=== PATIENT | female | born 1985 | race Two or more races ===

== ENCOUNTER 2024-07-08 14:26 | Emergency (ER) | payer MEDICAID, SELFPAY ==
[2024-07-08 15:01] VITALS: BP 148/93; PULSE 88; RESP 16; TEMP 37.2; O2SAT 98; BMI 23.6
--- NOTE | 2024-07-08 15:28 | PD.EDRME ---
Rapid Medical Screening Exam RME Arrival date/time: 07/08/24 14:26 This is a 39-year-old female that comes in with complaints of abdominal pain. Patient also complains of some nausea and some diarrhea. Patient denies fever or chills. I have greeted and performed a focused initial assessment of this patient. Initial appropriate labs ordered at this time. A comprehensive ED assessment and evaluation of the patient and analysis of all test and completion of medical decision making process will be conducted by additional ED provider. Chief Complaint: Abdominal Pain Time Seen by Provider: 07/08/24 14:32 Vital signs: Vital Signs Temperature 98.9 F 07/08/24 15:01 Pulse Rate 88 07/08/24 15:01 Respiratory Rate 16 07/08/24 15:01 Blood Pressure 148/93 H 07/08/24 15:01 Pulse Oximetry (%) 98 07/08/24 15:01 Oxygen Delivery Method Room Air 07/08/24 15:01
[2024-07-08 15:33] LABS: Collection Type, Urine Voided
[2024-07-08 16:02] LABS: Basophils % (Auto) 0 % (0-2.5); Eosinophils # (Auto) 0.1 Thou/mm3 (0.0-0.5); Eosinophils % (Auto) 1 % (0-10); Hematocrit 38.8 % (36.0-46.0); Hemoglobin 13.7 g/dL (12.0-16.0); Immature Granulocytes % (Auto) 0 % (0-0); Immature Granulocytes Auto 0.02 Thou/mm3 (0.00-0.00); Lymphocytes # (Auto) 1.3 Thou/mm3 (1.0-4.8); Lymphocytes % (Auto) 16 % (10-50); Mean Corpuscular HGB Conc 35.3 g/dl (31.0-37.0); Mean Corpuscular Hemoglobin 30.9 pg (25.0-35.0); Mean Corpuscular Volume 87 fL (80-100); Monocytes # (Auto) 0.5 Thou/mm3 (0.0-0.8); Monocytes % (Auto) 6 % (0-12); Neutrophils # (Auto) 6.3 Thou/mm3 (1.8-7.7); Neutrophils % (Auto) 77 % (37-80); Nucleated Red Blood Cell % 0 /100 WBC (0); Platelet Count 233 Thou/mm3 (140-440); RDW Standard Deviation 39.6 fL (36.4-46.3); Red Blood Count 4.44 Miln/mm3 (4.00-5.20); White Blood Count 8.2 Thou/mm3 (3.6-11.0)
[2024-07-08 16:26] LABS: Bilirubin,Urine Negative (Negative); Blood,Urine 1+ (Negative); Clarity,Urine Turbid (Clear/Hazy); Color,Urine Yellow (Lt Yel-Yel); Culture Indicated,Urine Not Indicated; Glucose, Urine Negative (Negative); Ketones,Urine Trace (Negative); Leukocyte Esterase,Urine Negative (Negative); Nitrite,Urine Negative (Negative); PH,Urine 5.5 (5.0-7.0); Protein,Urine Trace (Neg - Trace); RBC,Urine 3 /hpf (0-3); Specific Gravity,Urine 1.024 (1.001-1.035); Squamous Epithelial Cell,Urine 10 /hpf (0-5); Urobilinogen,Urine Negative mg/dL (0.0-1.0); WBC,Urine 2 /hpf (0-5)
[2024-07-08 16:26] LABS: Alanine Aminotransferase 18 U/L (10-49); Albumin, Serum 4.4 gm/dL (3.5-5.0); Albumin/Globulin Ratio 1.4 (1.2-2.2); Alkaline Phosphatase 90 U/L (46-116); Anion Gap 12 (7-16); Aspartate Amino Transferase 23 U/L (0-34); BUN/Creatinine Ratio 8 Ratio (12-20); Bilirubin,Total 0.3 mg/dL (0.3-1.2); Blood Urea Nitrogen 6 mg/dL (9-23); Calcium 8.7 mg/dL (8.3-10.6); Calcium (Corrected) 8.7 mg/dL (8.5-10.1); Carbon Dioxide 23.9 mMol/L (20.0-31.0); Chloride 107 mMol/L (98-107); Creatinine (Component) 0.8 mg/dL (0.6-1.3); Estimated Creatinine Clearance 83.3 mL/min (>60); Globulin 3.1 gm/dL (2.3-3.5); Glucose 131 mg/dL (74-106); Lipase 36 U/L (12-53); Osmolality,Calculated 284 (275-295); Potassium 3.6 mMol/L (3.4-5.1); Sodium 143 mMol/L (136-145); Total Protein 7.5 gm/dL (5.7-8.2); eGFR > 60 See Note
[2024-07-08 16:31] LABS: HCG Qualitative,Urine Negative
[2024-07-08 18:42] VITALS: BP 150/94; PULSE 96; RESP 18; TEMP 37.2; O2SAT 99
--- NOTE | 2024-07-08 18:58 | XR_ITS ---
Examination: Abdomen sonogram, complete Date and time of exam: July 08, 2024 1939 hours INDICATIONS: Onset of abdominal pain today Technique: Multiple real-time grayscale transabdominal sonographic images of the abdomen have been obtained. Findings: Normal gallbladder Common bile duct 0.6 cm no definite stones Pancreatic head 2.7 cm Aorta nonenlarged Liver 14.5 cm fatty infiltration Normal hepatopedal portal venous flow Patent IVC Right kidney 9.6 cm renal cortex 1.4 cm Left kidney 10.0 cm renal cortical in 0.5 cm Spleen 9.6 cm IMPRESSION: Abnormal enlargement common bile duct, as clinically warranted, consider MRCP follow-up to exclude common bile duct stone or stricture
--- NOTE | 2024-07-08 19:20 | EDNOTE_ITS ---
Nausea/Vomit./Diarrhea-RME/HPI General Chief complaint: Abdominal Pain Stated complaint: ABD PAIN, DIARRHEA, VOMIT X YESTERDAY Time Seen by Provider: 07/08/24 14:32 Arrival date/time: 07/08/24 14:26 RME / HPI RME / HPI Narrative: 07/08/24 14:26 This is a 39-year-old female that comes in with complaints of abdominal pain for 2 days. Patient also complains of some nausea and 2 episodes of watery diarrhea. She reports no headache, lightheadedness, sore throat, chest pain, SOB, any changes in urinary habit, leg swelling, fever or chills. Related Data Home Medications ?Medication ?Instructions ?Recorded ?Confirmed prenat.vits,grace,[id number] 1 tab PO QDAY 05/08/20 05/08/20 Previous Rx's ?Medication ?Instructions ?Recorded acetaminophen 325 mg tablet 325 mg PO QID PRN pain #30 tabs 07/08/24 pantoprazole 40 mg tablet,delayed 40 mg PO QDAY #28 ta bs 07/08/24 release Allergies Allergy/AdvReac Type Severity Reaction Status Date / Time NKA* Allergy Uncoded 07/08/24 14:29 Review of Systems Review of Systems Systems Reviewed: All systems reviewed, normal except as documented Past Medical History Past Medical History NEUROLOGIC: Negative Neurological Disorders or Seizures CARDIAC: Negative Cardiac Disorders or Congestive Heart Failure RESPIRATORY: Negative Chronic Obstructive Pulmonary Disease (COPD) GASTROINTESTINAL: Negative Gastrointestinal Disorders GENITOURINARY: Negative Genitourinary Disorders or Renal Disease REPRODUCTIVE: Positive Previous Pregnancies MUSCULOSKELETAL: Negative Musculoskeletal Disorders ENDOCRINE: Negative Endocrine Disorders, Diabetes Mellitus Type 1 or Diabetes Mellitus Type 2 HEMATOLOGIC: Negative Blood Disorders or Anemia OTHER HISTORY: Positive Hospitalization (CHILDBIRTH); Negative Autoimmune Disease, Falls, Blood Transfusions, Blood Transfusion Reaction, Anesthesia Reactions or Cancer Family History FAMILY HISTORY: Negative Family Psychiatric Problems, Family Respiratory Disorders, Family Cardiac Disorders, Family Gastrointestinal Problems, Family Cancer, Family Surgery or Family Anesthesia Reaction Surgical History SURGICAL: Negative Section Social History SMOKING STATUS: Never smoker SECOND HAND EXPOSURE: No ED Exam Narrative Physical exam: General: No acute distress, Alert and Oriented x 3 HEENT: Moist mucous membranes, oropharynx clear Neck: Supple, No masses, No JVD CVS: S1S2 Regular rate and rhythm, No murmurs, rubs or gallops Lungs: Clear to auscultation with no accessory use, no wheeze no rhonchi Abd: Soft, mildly tenderness over left lower quadrant/ND, +BS, no organomegaly Ext: No edema, warm and well perfused Skin: No rash Psych: Appropriate mood and affect Course Quality Measures none Orders Category Date Time Status IV [Insert IV] STAT Care 07/08/24 19:36 Active US abdomen Stat Exams 07/08/24 18:58 Completed CBC Stat Lab 07/08/24 15:47 Completed Comprehensive Metabolic Panel Stat Lab 07/08/24 15:47 Completed HCG Qualitative,Urine Stat Lab 07/08/24 15:28 Completed Lipase Stat Lab 07/08/24 15:47 Completed Urinalysis, C/S if Indicated Stat Lab 07/08/24 15:28 Completed Pantoprazole Inj [Protonix Inj] Med 07/08/24 18:59 Discontinued 40 mg IVP X1 ONE Vital Signs Vital signs: Vital Signs Temperature 98.9 F 07/08/24 15:01 Pulse Rate 88 07/08/24 15:01 Respiratory Rate 16 07/08/24 15:01 Blood Pressure 148/93 H 07/08/24 15:01 Pulse Oximetry (%) 98 07/08/24 15:01 Oxygen Delivery Method Room Air 07/08/24 15:01 Nausea/Vomiting/Diarrhea MDM Narrative MDM Narrative:: This is a 39-year-old female that comes in with complaints of abdominal pain for 2 days. Patient also complains of some nausea and 2 episodes of watery kamar rrhea. She reports no headache, lightheadedness, sore throat, chest pain, SOB, any changes in urinary habit, leg swelling, fever or chills. Her blood pressure was 148/93, pulse 88, RR 16, temperature 98.9, saturating 98% on room air. Labs revealed WBC 8.2, hemoglobin 13.7, chemistry panel revealed sodium 143, potassium 3.6, blood sugar 131, UA revealed turbid urine but negative for UTI. USG abdomen revealed common bile duct of 0.6cm but no RUQ tenderness and faith sign was negative. She was able to jump about 0.5 feet from the ground without pain. She was planned to discharge home. Patient data External records reviewed:: [facility] previous records Clinical information provided by:: patient Social determinants that could affect healthcare access:: none Patient has the following chronic illnesses:: History of anxiety disorder How is presenting disease/condition affected by chronic disease/condition?: uneffected by Evaluation data The following diagnostics were reviewed and interpreted by me:: lab results and radiology exam(s) Lab and/or radiology exams considered but not ordered:: None Interpretation Summary: See above Medications / Prescriptions Medications / Prescriptions considered but not ordered:: None Medication administrations:: Medication Administration History Discontinued Medications Pantoprazole Sodium (Pantoprazole Inj 40 Mg Vial) 40 mg IVP X1 ONE Stop: 07/08/24 19:00 Last Admin: 07/08/24 19:34 Dose: 40 mg Documented By: CB See above Consultations Consultation(s) initiated? (list below): No Diagnosis Nausea Differential Diagnosis: food poisoning, gastroenteritis and other (GERD) Most likely diagnosis given after review of the tests above:: Food poisoning Admission Indicated Admission indicated?: not indicated Admission Request Was there a request for admission?: No Disposition Plan Disposition Plan: Discharge Discharge Attestation Discharge Attestation: The patient and all family members were given an opportunity to ask questions and understood the discharge instructions. Discharge instructions specifically effects, indications for sooner follow up or return to the emergency department, and the expected course of current diagnosis. Patient condition: Stable Discharge Plan Plan Patient Disposition: HOME (Self Care) Prescriptions/Referrals Prescriptions/Med Rec: New pantoprazole 40 mg tablet,delayed release (DR/EC) 40 mg PO QDAY Qty: 28 0RF acetaminophen 325 mg tablet 325 mg PO QID PRN (Reason: pain) Qty: 30 0RF No Action Vitamin Tablet 1 tab PO QDAY Referrals: No Primary/Family,Physician [Primary Care Provider] - In 1 week Problem List Clinical Impression: Food poisoning, Dehydration Patient/Caregiver Discharge Instructions Discharge Activity: activity as tolerated Education Materials: Preventing Food Poisoning, Dehydration Additional Instructions: You have been discharged by Dr. Canales with the following recommendations: Please follow-up with your PCP within 1 week of discharge You have been started on: -Pantoprazole 40 Mg daily for 28 days -Tylenol 325 mg up to 4 times a day as needed for pain -Recommended to drink plenty of fluids Continue taking all other medicines as prescribed -Recommended to return back to emergency department if your symptoms persists or worsens Print Language: [place] Stand Alone Forms: Mely Award Info., Patient Portal Info Letter Attestation Attestation I, Dr. Edward, have reviewed the history, exam, and assessment of the patient. I have evaluated the patient independently and agree with the plan of care documented by the resident Dr. Canales. All diagnostic studies were reviewed and discussed. I confirm the diagnosis as documented by the resident. I was present during the Medical Decision Making for this patient. The patient?s plan of care was created between myself and the resident and consistent with our discussion of the patient?s case.
[2024-07-08] MEDS: PANTOPRAZOLE INJ 40 MG VIAL IVP (19:34)
[2024-07-08 22:05] VITALS: BP 122/95; PULSE 88; RESP 18; TEMP 36.9; O2SAT 99
== END 2024-07-08 22:05 | disposition home or self-care (01) ==
PROVIDERS: Nurse Practitioner Family; Emergency Provider Student in an Organized Health Care Education/Training Program
DX: A05.9 Bacterial foodborne intoxication, unspecified (principal); E86.0 Dehydration
CPT/HCPCS: 36415; 76700; 80053; 81001; 81025; 83690; 85025; 99284; J2470